=== PATIENT | male | born 1945 | race Caucasian/White ===

== ENCOUNTER 2021-05-15 12:49 | Day surgery (SDC) | payer MEDICARE, OTHER ==
[2021-05-15] MEDS ORDERED: PROPOFOL 20 ML ONE (13:30)
[2021-05-15] MEDS ORDERED: Phenylephrine 10 MG/ML VIAL ONE (13:56)
[2021-05-15] MEDS ORDERED: Glycopyrrolate 0.2 MG/ML 5 ML SYRINGE ONE (13:57)
[2021-05-15 14:46] VITALS: BP 109/71; TEMP 98.2
== END 2021-05-15 16:00 | disposition home or self-care (01) ==
LOC: CSHCCL 12:49
PROVIDERS: ATTEND Internal Medicine Cardiovascular Disease
DX: I48.0 Paroxysmal atrial fibrillation (principal); I10 Essential (primary) hypertension; E78.5 Hyperlipidemia, unspecified; I35.1 Nonrheumatic aortic (valve) insufficiency; M06.9 Rheumatoid arthritis, unspecified; E11.9 Type 2 diabetes mellitus without complications; Z79.899 Other long term (current) drug therapy; Z79.01 Long term (current) use of anticoagulants
CPT/HCPCS: 92960; J2370; J2704

== ENCOUNTER 2021-08-16 08:52 | Observation (INO) | payer MEDICARE, OTHER ==
[2021-08-16 09:38] LABS: #Eosinphils 0.2 10x3/uL (0.0-0.5); #Monocytes 0.5 10x3/uL (0.0-1.1); #Neutrophils 3.6 10x3/uL (1.5-8.4); %Basophils 0.4 % (0.0-2.0); %Eosinophils 3.2 % (0.0-6.0); %Monocytes 9.5 % (0.0-10.0); %Neutrophils 68.5 % (40.0-75.0); Hemoglobin 15.1 g/dL (13.5-17.5); Mean Corpuscular HGB CONC 33.7 g/dL (32.0-36.0); Mean Corpuscular Volume 89.1 fl (81.2-95.1); Mean Platelet Volume 12.2 fl (7.4-10.4); Platelet Count 113 10x3/uL (150-450); RBC Distribution Width 13.5 % (11.5-14.5); Red Blood Cell (RBC) Count 5.03 10x6/uL (4.32-5.72); White Blood Cell (WBC) Count 5.3 10x3/uL (3.5-10.5)
[2021-08-16 09:47] LABS: PTT 25.4 sec (22.0-33.0)
[2021-08-16 09:48] LABS: Anion Gap 15 mmol/L (10-20); BUN (Urea Nitrogen) 23 mg/dL (8.4-25.7); Calc. Creatinine Clearance 62 mL/min (70-130); Calcium 9.3 mg/dL (7.8-10.44); Carbon Dioxide 21 mmol/L (23-31); Chloride 103 mmol/L (98-107); Glucose 156 mg/dL (83-110); Potassium 4.3 mmol/L (3.5-5.1); Sodium 135 mmol/L (136-145)
[2021-08-16] MEDS ORDERED: Ascorbic Acid 500 mg Chewable Tablet ONE (09:57)
[2021-08-16] MEDS ORDERED: Aspirin 325 MG TAB ONE (09:58)
[2021-08-16 10:13] LABS: SARS-CoV-2 NAA Rapid Test Not Detected (NotDetected)
[2021-08-16] MEDS ORDERED: Nitroglycerin 50 MG/250 ML BOT 0 ML ONE (10:13)
[2021-08-16] MEDS ORDERED: Lidocaine 1% (PF) 30 ML VIAL ONE (10:13)
[2021-08-16] MEDS ORDERED: Adenosine 6 MG/2 ML VIAL ONE (10:13)
[2021-08-16] MEDS ORDERED: Heparin 10,000 UNITS/ 10 ML VIAL ONE (10:13)
[2021-08-16] MEDS ORDERED: Fentanyl 100 MCG/2 ML VIAL ONE (10:33)
[2021-08-16] MEDS ORDERED: Midazolam HCl 2 mg/2 ml Vial ONE (10:33)
[2021-08-16] MEDS ORDERED: Atropine Sulfate 0.4 mg/1 ml Vial ONE (10:54)
[2021-08-16] MEDS ORDERED: Ondansetron PF 4 MG/2 ML Vial ONE (10:54)
[2021-08-16] MEDS ORDERED: niCARdipine 25 MG/10 ML VIAL ONE (11:04)
[2021-08-16 11:28] LABS: Cardiac Risk 3.4 (Less than 4.5)
[2021-08-16] MEDS ORDERED: TICAGRELOR 90 MG TABLET ONE (11:55)
[2021-08-16] MEDS ORDERED: Acetaminophen/Codeine 30-300mg Tablet PO PRN ×2 (13:33)
[2021-08-16] MEDS ORDERED: Morphine 2 MG/ML VIAL SLOW IVP PRN (13:33)
[2021-08-16] MEDS ORDERED: Sodium Chloride 0.9% 1,000 ML IV SCH (13:45)
[2021-08-16 14:05] LABS: Hemoglobin A1c 7.6 % (4.0-6.0)
[2021-08-16] MEDS ORDERED: Iopamidol 300 61% 50 ML VIAL FS ONE (14:06)
[2021-08-16] MEDS ORDERED: Iopamidol 300 61% 100 ML VIAL FS ONE (14:06)
[2021-08-16 16:07] VITALS: BP 123/74; TEMP 96.3
[2021-08-16] MEDS ORDERED: Dronedarone HCl 400 MG TAB PO SCH (17:45)
[2021-08-16] MEDS ORDERED: TICAGRELOR 90 MG TABLET PO SCH (18:00)
[2021-08-16] MEDS ORDERED: Donepezil HCl 5 MG TAB PO SCH (21:00)
[2021-08-17] MEDS ORDERED: Dronedarone HCl 400 MG TAB PO SCH (08:00)
[2021-08-17] MEDS ORDERED: Atenolol 50 MG TAB PO SCH ×2 (09:00)
[2021-08-17] MEDS ORDERED: Losartan 25 MG TAB PO SCH (09:00)
[2021-08-17] MEDS ORDERED: Atorvastatin Calcium 40 MG TAB PO SCH (09:00)
[2021-08-17] MEDS ORDERED: Cholecalciferol 1,000 UNITS (25 MCG) TAB PO SCH (09:00)
[2021-08-17] MEDS ORDERED: Empagliflozin 25 MG TAB PO SCH (09:00)
[2021-08-17] MEDS ORDERED: Aspirin 81 mg Enteric Coated Tablet PO SCH (09:00)
[2021-08-17] MEDS ORDERED: Escitalopram Oxalate 10 mg Tablet PO SCH (09:00)
[2021-08-17] MEDS ORDERED: TICAGRELOR 90 MG TABLET PO SCH (09:00)
[2021-08-17] MEDS ORDERED: Carvedilol 6.25 MG TAB PO SCH ×2 (09:00)
[2021-08-17] MEDS ORDERED: Furosemide 20 MG TAB PO SCH (09:00)
[2021-08-23] MEDS ORDERED: Non-Formulary Medication 1 EACH (Semaglutide [Ozempic] 1 MG/0.75 ML Pen.Injctr) SQ SCH (09:00)
== END 2021-08-16 20:00 | disposition home or self-care (01) ==
LOC: CSHSDC 08:52 → CSHTELE 15:59
PROVIDERS: ADMIT Specialist; ATTEND Specialist
DX: I25.119 Atherosclerotic heart disease of native coronary artery with unspecified angina pectoris (principal); I10 Essential (primary) hypertension; E78.5 Hyperlipidemia, unspecified; E11.9 Type 2 diabetes mellitus without complications; I48.0 Paroxysmal atrial fibrillation; Z79.899 Other long term (current) drug therapy; Z79.01 Long term (current) use of anticoagulants; Z95.0 Presence of cardiac pacemaker; I35.0 Nonrheumatic aortic (valve) stenosis; Z79.84 Long term (current) use of oral hypoglycemic drugs; Z79.82 Long term (current) use of aspirin; M06.9 Rheumatoid arthritis, unspecified
CPT/HCPCS: 80048; 80061; 82962; 83036; 83880; 85025; 85610; 85730; 92978; 92979; 93005; 93454; C1725; C1753; C1769; C1874 ×4; C1887 ×5; C9600; G0378; U0002; 36416; 92928; 93010; 99152; 99153; J0153; J0461; J1644; J2001; J2250; J2405; J3010; J7050; Q9967